=== PATIENT | female | born 1960 | race American Indian/Alaskan Native ===

== ENCOUNTER 2018-08-17 16:46 | Emergency (ER) | payer MEDICARE ==
[2018-08-17 17:04] VITALS: BP 178/86
[2018-08-17] MEDS ORDERED: MOTRIN PO ONE (20:31)
--- NOTE | 2018-08-17 20:32 | Emergency Department Report ---
ED Female HPI - General Chief complaint: Rectal Pain Stated complaint: PAIN IN RECTUM Time Seen by Provider: 08/17/18 19:54 Source: patient Mode of arrival: Ambulatory Limitations: Other - History of Present Illness Initial comments: 57-year-old -Al[place] female with a medical history of deafness comes in complaining of rectal pain 2 days. Patient denies any bleeding. She does report she had a bowel movement 2 days ago. She reported it was normal and soft. Patient denies any fever chills no abdominal pains. No medication has been with writing questions and answers down. She has a past medical history of hypertension. -: days(s) (2) Location: other (rectum) Severity scale (0 -10): 8 Quality: burning, aching Consistency: constant Improves with: none Worsens with: other (sitting) Are you Now?: No Associated Symptoms: denies other symptoms - Related Data Previous Rx's Medication Instructions Recorded Last Taken Type Hydrocortisone [Anusol-Hc] 1 suppositor RC Q6H PRN 7 Days #1 08/17/18 Unknown Rx box Ibuprofen [Motrin 600 MG tab] 600 mg PO Q8H #15 tablet 08/17/18 Unknown Rx Allergies Allergy/AdvReac Type Severity Reaction Status Date / Time No Known Allergies Allergy Verified 08/17/18 17:28 ED Review of Systems ROS: Stated complaint: PAIN IN RECTUM Other details as noted in HPI Genitourinary: other (hemorrhoid) ED Past Medical Hx - Past Medical History Hx Hypertension: Yes Additional medical history: Deaf - Social History Smoking Status: Never Smoker Substance Use Type: None - Medications Home Medications: Home Medications Medication Instructions Recorded Confirmed Last Taken Type Hydrocortisone [Anusol-Hc] 1 suppositor RC Q6H PRN 7 Days #1 08/17/18 Unknown Rx box Ibuprofen [Motrin 600 MG tab] 600 mg PO Q8H #15 tablet 08/17/18 Unknown Rx ED Physical Exam - General Limitations: Other General appearance: alert, in no apparent distress - Head Head exam: Present: atraumatic, normocephalic - Eye Eye exam: Present: EOMI - ENT ENT exam: Present: mucous membranes moist - Rectal Rectal exam: Present: hemorrhoids (non-strangulated external hemorrhoid, and TTP , able to reduce) ED Course Vital Signs 08/17/18 17:02 Temperature 98.1 F Pulse Rate 60 Respiratory 16 Rate Blood Pressure 178/86 O2 Sat by Pulse 98 Oximetry ED Medical Decision Making - Medical Decision Making Patient has been evaluated by this provider fast track. Ibuprofen given for pain management Discussed the patient she has a non-strangulated thrombosed external hemorrhoid that was able to be reduced Discussed with patient and I will send her home on Anusol rectal suppositories Discussed patient I will refer her to a utility assembler and surgeon. Patient verbalized understanding Critical care attestation.: If time is entered above; I have spent that time in minutes in the direct care of this critically ill patient, excluding procedure time. ED Disposition Clinical Impression: External hemorrhoid, thrombosed Disposition: DC- TO HOME OR SELFCARE Is pt being admited?: No Does the pt Need Aspirin: No Condition: Stable Instructions: Hemorrhoids (ED), Astringent (On the skin), Hydrocortisone ( Rectal) Additional Instructions: Please use Anusol suppositories as prescribed and as needed. Take Motrin as needed for pain. Follow-up with the utility assembler or general surgeon I have listed her information below. Prescriptions: Hydrocortisone [Anusol-Hc] 1 suppositor RC Q6H PRN 7 Days #1 box PRN Reason: Pain , Severe (7-10) Ibuprofen [Motrin 600 MG tab] 600 mg PO Q8H #15 tablet Referrals: PRIMARY CAREMD [Primary Care Provider] - 3-5 Days LIAT NUGENT MD [Staff Physician] - 3-5 Days KAELYN JIMENEZ MD [Staff Physician] - 3-5 Days Forms: Work/School Release Form(ED)
== END 2018-08-17 20:54 | disposition home or self-care (01) ==
LOC: ED 16:46
DX: K64.5 Perianal venous thrombosis (principal); I10 Essential (primary) hypertension